=== PATIENT | female | born 1980 | race African-American/Black ===

== ENCOUNTER 2020-02-19 19:10 | Emergency (ER) | payer BC ==
[~2020-02-19] VITALS: Ht 165.1 cm; Wt 69.0 kg
[2020-02-19 23:26] LABS: BASOPHILS % 0.4 % (0.0-2.0); EOSINOPHILS % 0.4 % (0.0-5.0); HEMATOCRIT. 37.9 % (36.0-48.0); HEMOGLOBIN. 12.7 g/dL (12.0-16.0); LYMPHOCYTES % 18.6 % (20.0-50.0); MEAN CORPUSCULAR HEMOGLOBIN 29.6 pg (28.0-32.0); MEAN CORPUSCULAR VOLUME 88.1 fL (81.0-99.0); MEAN PLATELET VOLUME 8.3 fl (7.4-10.4); MONOCYTES % 5.5 % (2.0-8.0); NEUTROPHILS % 75.1 % (40.0-76.0); PLATELET 392 x1000/uL (130-400); RED BLOOD CELL COUNT 4.31 mill/uL (4.2-5.4); RED CELL DISTRIBUTION WIDTH 13.1 % (11.6-14.6)
[2020-02-19 23:30] LABS: CHLORIDE 105 mEq/L (98-107)
[2020-02-20 01:39] VITALS: BP 112/63
== END 2020-02-20 01:43 | disposition home or self-care (01) ==
LOC: ER 19:10
DX: O03.9 Complete or unspecified spontaneous abortion without complication (principal)
CPT/HCPCS: 36415; 76801; 80053; 85025; 86850; 86900; 93005; 99285